=== PATIENT | female | born 1995 | race Caucasian/White ===

== ENCOUNTER 2017-04-03 01:55 | Inpatient (IN) | payer BC, MEDICAID ==
[~2017-04-03] VITALS: Ht 157.5 cm; Wt 64.1 kg
[~2017-04-03 01:55] MED LIST: CALAMINE TOP; CEFI400C PO; DOXY100C42 PO; NAPR275T83 PO; NORE-38 PO; VALA1000 PO
[2017-04-03] MEDS ORDERED: OXYTOCIN 30 UNITS/LR 500 ML IV PRN ×2 (02:30→21:30)
[2017-04-03] MEDS ORDERED: IBUPROFEN 600 MG TAB PO PRN (02:30)
[2017-04-03] MEDS ORDERED: BUTORPHANOL 2 MG INJ IV PRN (02:30)
[2017-04-03] MEDS ORDERED: LACTATED RINGER'S 1,000 ML IV PRN (02:30)
[2017-04-03] MEDS ORDERED: OXYCODONE/ASPIRIN (4.88/325) TAB PO PRN ×2 (02:30→21:30)
[2017-04-03] MEDS ORDERED: MISOPROSTOL 200 MCG TAB PR PRN ×2 (02:30→21:30)
[2017-04-03] MEDS ORDERED: CARBOPROST 250 MCG INJ IM PRN ×2 (02:30→21:30)
[2017-04-03] MEDS ORDERED: MINERAL OIL LIGHT 10 ML VIAL TOP PRN (02:30)
[2017-04-03] MEDS ORDERED: OXYTOCIN 30 UNITS/LR 500 ML IV SCH ×3 (02:30)
[2017-04-03] MEDS ORDERED: LIDOCAINE 1% (MPF) 30 ML INJ INJ PRN (02:30)
[2017-04-03] MEDS ORDERED: METHYLERGONOVINE 0.2 MG INJ IM PRN ×2 (02:30→21:30)
[2017-04-03] MEDS ORDERED: AMPICILLIN 2 GM/NS (PMX) 100 ML IV ONE (02:30)
[2017-04-03 02:33] VITALS: Ht 157.5 cm; Wt 64.1 kg
--- NOTE | 2017-04-03 02:46 | TRIAGE ---
OB Triage Datetime Report Generated by CPN: 04/03/2017 02:45 Datetime: 04/03/2017 02:35 Stage of : OB Triage Datetime: 04/03/2017 02:30 Labor Evaluation Frequency: 3-4 Monitor Mode: External Duration (sec)2399: 50-80 Pattern: Normal: <= 5 Contractions in 10 Minutes Heart Rate FHR Baseline Rate: 135 Monitor Mode: External US FHR Baseline Changes: No Baseline Change Variability: Moderate 6-25 bpm Accelerations: 15X15 Datetime: 04/03/2017 02:15 EGA: 38.6 Datetime: 04/03/2017 02:07 Pain Assessment Pain Scale: 5 Pain Presence: Intermittent Pain Type: Cramping Pain Location: Abdomen Vaginal Exam Dilatation (cms): 1.0 Effacement (%): 50 Station: -2 Exam By: ANA MCKINNON Membrane Status: Ruptured Membranes Rupture Method: Spontaneous Amniotic Fluid Color: Clear Amniotic Fluid Amount: Small Amniotic Fluid Odor: Normal Vaginal Bleeding: None Pool: Positive Cervix, Consistency: Moderate Cervix, Position: Posterior Presentation 'A': Cephalic Datetime: 04/03/2017 01:55 Stage of : OB Triage Assessment Type: Triage Time of Arrival: 04/03/2017 01:55 Arrived By: Wheelchair Arrived From: Home Chief Complaint: LOF Movement: Present Contractions: Occasional Time Contractions Began: 04/03/2017 01:30 Contractions: Q5MIN Rupture of Membranes: Ruptured Vaginal Bleeding: None Vaginal Discharge: Present Recent Sexual Intercouse: Denies Abdominal Trauma: Not Applicable Patient Complaints: Contractions Time Provider Notified: 04/03/2017 02:16 Provider Notified: ANGELLA Initial Plan: EFM, STERILE SPEC Maternal Assessment Level of Consciousness: Fully Conscious Headache: Denies Blurred Vision: No Respiratory Effort: Unlabored; Regular Rhythm; Equal Expansion Nausea/Vomiting: Denies RUQ Epigastric Pain: Denies Facial Edema: None Fall Risk Assessment History of Falling: (0) No Secondary Diagnosis: (0) No Ambulatory Aid: (0) Bedrest/Nurse Assist IV Therapy: (0) No Gait: (0) Normal/Bedrest/Immobile Mental Status: (0) Oriented to Own Ability Fall Score: 0 Fall Risk Score Definition: No Risk: No action required
[2017-04-03] MEDS: LACTATED RINGER'S 1,000 ML IV SCH ×2 (03:20→08:22)
--- NOTE | 2017-04-03 03:40 | RADRPT ---
PROCEDURE: US OB, limited. CLINICAL INDICATION: LABOR TECHNIQUE: Multiple sonographic images of the pelvis were obtained. The images were reviewed on a PACS workstation. COMPARISON: No prior studies are available for comparison. FINDINGS: The cervix is not seen. There is a single viable intrauterine gestation. Cardiac activity is present with 130 beats per min [place]. There is a vertex presentation. Measurements were made in order to determine age. The results are as follows: BPD =8.91 cm HC =31.99 cm AC =35.59 cm FL =7.34 cm. Estimated gestational age of approximately 37 weeks, 2 days. The gestational age by LMP is 38 weeks, 6 days.. The estimated date of delivery is 04/22/2017. The EFW = 3432 g +/- 514 g. 7 pounds, 9 ounces. . The placenta is anterior, grade 1. There is no evidence for an abruption. IMPRESSION: Single viable intrauterine gestation of approximately 37 weeks, 2 days. The estimated date of deliv segundo is 04/22/2017. Vertex presentation. Anterior placenta. Physician Clifford Date Time Electronically viewed and signed by Physician Clifford on 04/03/2017 03:40 CS/
[2017-04-03 04:05] LABS: BASOPHILS % 0.3 % (0.0-2.0); EOSINOPHILS % 0.5 % (0.0-7.0); HEMATOCRIT 36.7 % (37.0-47.0); HEMOGLOBIN 12.3 g/dl (12.0-16.0); LYMPHOCYTES # 1.8 10^3/ul (0.8-2.9); MEAN CORPUSCULAR HEMOGLOBIN 32.5 pg (29.0-33.0); MEAN CORPUSCULAR HGB CONC 33.5 g/dl (32.0-37.0); MEAN CORPUSCULAR VOLUME 97.1 fl (72.0-104.0); MEAN PLATELET VOLUME 11.8 fl (7.4-10.4); MONOCYTE # 0.5 10^3/ul (0.3-0.9); MONOCYTES % 6.2 % (0.0-13.0); NEUTROPHIL # 5.3 10^3/ul (1.6-7.5); NEUTROPHILS % 69.4 % (30.0-74.0); PLATELET COUNT 178 10^3/UL (140-415); RED BLOOD COUNT 3.78 10^6/ul (4.20-5.40); WHITE BLOOD COUNT 7.7 10^3/ul (4.8-10.8)
[2017-04-03 04:18] LABS: INR 0.91; PROTIME 12.2 Sec (12.2-14.2)
[2017-04-03 04:19] LABS: PARTIAL THROMBOPLASTIN TIME 26.7 Sec (25.0-35.0)
[2017-04-03] MEDS: AMPICILLIN 1 GM/NS (PMX) 50 ML IV SCH ×3 (07:38→16:40)
[2017-04-03] MEDS ORDERED: FENTAnyl 2MCG/ML-ROPIV 0.2% 100 ML ONE (07:48)
[2017-04-03] MEDS ORDERED: FENTAnyl 2MCG/ML-ROPIV 0.2% 100 ML BAG EPI SCH (08:30)
[2017-04-03] MEDS ORDERED: NALOXONE (0.4 MG/ML) INJ IV PRN (08:30)
--- NOTE | 2017-04-03 17:34 | LDN ---
Date/Time of Note Date/Time of Note DATE: 04/03/17 TIME: 17:33 Delivery Summary Weeks of Gestation 38+ Placenta Delivered: Spontaneously Meconium: none Episiotomy: No Estimated blood loss: 200 Sponge & Needle done & correct: Yes All needle counts correct: Yes Any foreign bodies felt in the: Yes (First degree vaginal laceration that was repaired) Problems: Infant Delivery Information Sex Infant Sex: male Apgars 1 Minute: 8 5 Minute: 9 Suctioning Nose & mouth suctioned at sam: Yes Delee suction performed: Yes Umbilical Cord Umbilical cord with: 3 Vessels Cord presentations: no nuchal cord Cord Blood was obtained: Yes Mother & Baby Disposition Disposition Mom & Baby to Maternity; Good: Yes Mom transferred to: Other Baby to NICU: No COLLINS PERALES M.D. Apr 03, 2017 17:34
--- NOTE | 2017-04-03 17:35 | HP ---
Date/Time of Note Date/Time of Note DATE: 04/03/17 TIME: 17:34 OB - History Hx of Present Free Text/Dictation @38+wks GA in labor SROM : 1 Para: 0 Care: Good Care Ultrasounds: Normal mid trimester US Obstetrical Complications: None Past Family/Social History * Past Medical, Surgical, Family and Obstetric Histories reviewed from chart. OB Admission Exam Physical Exam HEENT: WNL Abdomen: WNL Extremities: Normal Cervical Dilatation: 2cm Effacement: 75% Station: -1 Membranes: Ruptured Amniotic Fluid: Clear Heart Rate: 140's Accelerations: Accelerations Present Decelerations: No Decelerations Contractions on Admission: >10 Minutes Apart Last 72 hours Lab Results CBC & BMP 04/03/17 03:40 OB Assessment/Plan Reason for admission: observation Plan: Expectant Management Induction Method: per Pitocin Protocol COLLINS PERALES M.D. Apr 03, 2017 17:35
[2017-04-03] MEDS ORDERED: ONDANSETRON 4 MG INJ IV STA (17:48)
[2017-04-03] MEDS ORDERED: ONDANSETRON 4 MG INJ ONE (17:50)
[2017-04-03 20:10] VITALS: BP 120/69
[2017-04-03] MEDS ORDERED: LACTATED RINGER'S 1,000 ML IV* SCH (21:13)
[2017-04-03] MEDS ORDERED: LANOLIN 7 GM TUBE TOP PRN (21:30)
[2017-04-03] MEDS ORDERED: BENZOCAINE 20% 56 ML SPRAY TOP PRN (21:30)
[2017-04-03] MEDS ORDERED: SENNA/DOCUSATE NA (8.6MG/50MG) TAB PO PRN (21:30)
[2017-04-03] MEDS ORDERED: ZOLPIDEM 5 MG TAB PO PRN (21:30)
[2017-04-03] MEDS ORDERED: WITCH HAZEL/GLYCERIN PAD PR PRN (21:30)
[2017-04-03] MEDS: IBUPROFEN 600 MG TAB PO SCH (23:23)
[2017-04-04 00:05] VITALS: BP 101/58
[2017-04-04 03:50] VITALS: BP 102/59
[2017-04-04] MEDS: IBUPROFEN 600 MG TAB PO SCH ×4 (05:38→23:42)
[2017-04-04 08:20] VITALS: BP 106/56
[2017-04-04] MEDS: SENNA/DOCUSATE NA (8.6MG/50MG) TAB PO SCH ×2 (08:48→20:37)
[2017-04-04] MEDS ORDERED: INFLUENZA VIRUS VACCINE 0.5 ML (DISPENSING) IM* ONE (09:00)
[2017-04-04 11:39] LABS: BASOPHILS % 0.2 % (0.0-2.0); EOSINOPHILS % 0.2 % (0.0-7.0); HEMATOCRIT 37.8 % (37.0-47.0); HEMOGLOBIN 12.7 g/dl (12.0-16.0); LYMPHOCYTES # 1.7 10^3/ul (0.8-2.9); MEAN CORPUSCULAR HEMOGLOBIN 32.9 pg (29.0-33.0); MEAN CORPUSCULAR HGB CONC 33.6 g/dl (32.0-37.0); MEAN CORPUSCULAR VOLUME 97.9 fl (72.0-104.0); MONOCYTE # 0.7 10^3/ul (0.3-0.9); MONOCYTES % 5.5 % (0.0-13.0); NEUTROPHIL # 10.7 10^3/ul (1.6-7.5); NEUTROPHILS % 80.6 % (30.0-74.0); PLATELET COUNT 152 10^3/UL (140-415); RED BLOOD COUNT 3.86 10^6/ul (4.20-5.40); RED CELL DISTRIBUTION WIDTH 12.8 % (11.5-14.5); WHITE BLOOD COUNT 13.3 10^3/ul (4.8-10.8)
[2017-04-04 13:17] LABS: ADD UMIC YES; UR ASCORBIC ACID NEGATIVE (NEGATIVE); UR BILIRUBIN (Dip) NEGATIVE (NEGATIVE); UR BLOOD (Dip) 3+ mg/dL (NEGATIVE); UR CLARITY CLEAR (CLEAR); UR COLOR YELLOW (YELLOW); UR GLUCOSE (Dip) NEGATIVE (NEGATIVE); UR KETONES (Dip) NEGATIVE (NEGATIVE); UR LEUKOCYTE ESTERASE (Dip) NEGATIVE Leu/ul (NEGATIVE); UR NITRITE (Dip) NEGATIVE (NEGATIVE); UR RBC 143 /HPF (0-5); UR SPECIFIC GRAVITY (Dip) 1.012 (1.003-1.030); UR TOTAL PROTEIN (Dip) 1+ mg/dl (NEGATIVE); UR UROBILINOGEN (Dip) NEGATIVE (NEGATIVE)
[2017-04-04 16:00] VITALS: BP 106/64
--- NOTE | 2017-04-04 18:09 | PN ---
Date/Time of Note Date/Time of Note DATE: 04/04/17 TIME: 18:02 OB Subjective Subjective Subjective Vaginal bleeding in the amount of menses. Does not want to breast feed, urinated. Ambulated. OB Objective Objective Objective GA: A&O, NAD Abdomen: Soft, non tender, Fundus firm at the level of umbilicus Extremities; No calf tenderness, no crod palpable, Negative Yohana sign Breasts: No evidence of engorgement, no fissure, no evidence of mastitis Hematology - 72 Hrs Test 04/03/17 03:40 04/04/17 10:53 White Blood Count 7.710^3/ul (4.8-10.8) # 13.310^3/ul (4.8-10.8) #H Red Blood Count 3.7810^6/ul (4.20-5.40) L 3.8610^6/ul (4.20-5.40) L Hemoglobin 12.3g/dl (12.0-16.0) 12.7g/dl (12.0-16.0) Hematocrit 36.7% (37.0-47.0) L 37.8% (37.0-47.0) Mean Corpuscular Volume 97.1fl (72.0-104.0) 97.9fl (72.0-104.0) Mean Corpuscular Hemoglobin 32.5pg (29.0-33.0) 32.9pg (29.0-33.0) Mean Corpuscular Hemoglobin Concent 33.5g/dl (32.0-37.0) 33.6g/dl (32.0-37.0) Red Cell Distribution Width 13.0% (11.5-14.5) 12.8% (11.5-14.5) Platelet Count 58655^3/UL (140-415) 16942^3/UL (140-415) Mean Platelet Volume 11.8fl (7.4-10.4) #H 12.0fl (7.4-10.4) H Neutrophils % 69.4% (30.0-74.0) 80.6% (30.0-74.0) H Lymphocytes % 23.0% (18.0-55.0) 13.0% (18.0-55.0) L Monocytes % 6.2% (0.0-13.0) 5.5% (0.0-13.0) Eosinophils % 0.5% (0.0-7.0) 0.2% (0.0-7.0) Basophils % 0.3% (0.0-2.0) 0.2% (0.0-2.0) Nucleated Red Blood Cells % 0.0/100WBC (0.0-0.0) 0.0/100WBC (0.0-0.0) Neutrophils # 5.310^3/ul (1.6-7.5) 10.710^3/ul (1.6-7.5) H Lymphocytes # 1.810^3/ul (0.8-2.9) 1.710^3/ul (0.8-2.9) Monocytes # 0.510^3/ul (0.3-0.9) 0.710^3/ul (0.3-0.9) Eosinophils # 0.010^3/ul (0.0-0.5) 0.010^3/ul (0.0-0.5) Basophils # 0.010^3/ul (0.0-0.1) 0.010^3/ul (0.0-0.1) Nucleated Red Blood Cells # 0.010^3/ul (0.0-0.0) 0.010^3/ul (0.0-0.0) OB Assessment/Plan Other Assessment: PPD #1 Post vaginal delivery Doing well History of UTI in the past. s/p treatment. Asymptomatic. Urine culture requested routine post care Advised about using tight bra and ice compress Anticipate DC home tomorrow DAQUAN REESE MD Apr 04, 2017 18:09
[2017-04-04 20:00] VITALS: BP 106/54
[2017-04-05 04:00] VITALS: BP 90/55
[2017-04-05] MEDS: IBUPROFEN 600 MG TAB PO SCH ×2 (05:30→12:01)
[2017-04-05 08:00] VITALS: BP 104/51
[2017-04-05] MEDS: SENNA/DOCUSATE NA (8.6MG/50MG) TAB PO SCH (08:43)
[2017-04-05] MEDS: DIPHTH/TET/ACEL PERTUSS (ADULT) 0.5 ML VIAL IM* ONE ×2 (08:43→09:55)
--- NOTE | 2017-04-05 10:50 | QN ---
Documentation Comment PPD#2 is stable afebrile No VB +BM +voids VS stable Gen NAD Abd soft NT ND Genitalia No Blood at perinium --->discharge Home COLLINS PERALES M.D. Apr 05, 2017 10:50
[2017-04-05 15:00] VITALS: BP 106/55
--- NOTE | 2017-04-10 17:52 | DS ---
Date/Time of Note Date/Time of Note DATE: 04/10/17 TIME: 17:52 Discharge Summary Admission/Discharge Info Admit Date/Time Apr 03, 2017 at 02:00 Discharge Date/Time Apr 05, 2017 at 17:55 Discharge Diagnosis Patient Condition: Good Procedures vaginal delivery Hospital Course uneventful Home Meds Discontinued Scripts Naproxen Sodium* (Naproxen*) 275 Mg Tablet, 275 MG PO Q8 for PAIN, #20 TAB Prov:DANTE PLASENCIA MD 04/11/14 Calamine* (Calamine*) 120 Ml Lotion, 1 APPLIC TOP Q4H for itching or pain, #120 ML Prov:DANTE PLASENCIA MD 04/11/14 Noreth A-Et Estra-Fe Fumarate (Minastrin 24 Fe Chew) 1 Each Tab.chew, 1 TAB PO DAILY for 28 Days, TAB.CHEW Prov:DANTE PLASENCIA MD 04/11/14 Valacyclovir Hcl* (Valacyclovir Hcl*) 1,000 Mg Tablet, 1000 MG PO TID for 7 Days , TAB Prov:DANTE PLASENCIA MD 04/11/14 Doxycycline Monohydrate (Doxycycline Monohydrate) 100 Mg Capsule, 100 MG PO BID for 5 Days Prov:DANTE PLASENCIA MD 04/11/14 Cefixime (Suprax) 400 Mg Capsule, 400 MG PO BID for 5 Days, CAP Prov:DANTE PLASENCIA MD 04/11/14 Primary Care Provider Not On Staff Doctor COLLINS PERALES M.D. Apr 10, 2017 17:52
== END 2017-04-05 17:55 | disposition home or self-care (01) | DRG 775 ==
LOC: L-D 01:55 → OBT 01:55 → L-D 02:00 → OBT 02:00 → PP1 20:12
PROVIDERS: ADMIT Obstetrics & Gynecology; ATTEND Obstetrics & Gynecology
PROC: 10E0XZZ Delivery of Products of Conception, External Approach (ICD-10-PCS; principal; 2017-04-03)
PROC: 0UQGXZZ Repair Vagina, External Approach (ICD-10-PCS; 2017-04-03)
PROC: 3E0P3VZ Introduction of Hormone into Female Reproductive, Percutaneous Approach (ICD-10-PCS; 2017-04-03)
DX: O71.4 Obstetric high vaginal laceration alone (principal); Z37.0 Single live birth; Z3A.38 38 weeks gestation of pregnancy
CPT/HCPCS: 62319; 76815; 81001; 85025; 85610; 85730; 86592; 86900; 86901; 90686; 90715; G0463; J0290; J2210; J2405; J2590; J3010; J7120